=== PATIENT | female | born 1955 | race Caucasian/White ===

== ENCOUNTER 2016-10-01 21:55 | Outpatient (CLI) | payer MEDICAID, OTHER | END 2016-10-01 21:56 | disposition home or self-care (01) | DX: M17.0 Bilateral primary osteoarthritis of knee (principal); M25.562 Pain in left knee; M25.561 Pain in right knee ==

== ENCOUNTER 2016-12-23 15:43 | Outpatient (CLI) | payer MEDICAID | END 2016-12-23 15:44 | disposition home or self-care (01) | DX: Z13.29 Encounter for screening for other suspected endocrine disorder (principal); Z13.220 Encounter for screening for lipoid disorders ==